=== PATIENT | male | born 1970 | race Caucasian/White ===

== ENCOUNTER 2019-07-20 08:40 | Day surgery (SDC) | payer BC ==
[~2019-07-20] VITALS: Ht 170.2 cm; Wt 78.9 kg
[~2019-07-20 08:40] MED LIST: CEPH500 PO; CITA10S PO; CYCL10 PO; DOXY100 PO; HYDACE5; HYDACE5 PO; NAPR500 PO; Norco 5-325 Ta1 EACH PO; OMEPRAZOLE20 MG; RXOXYACE PO; SERT50 PO
== END 2019-07-20 10:25 | disposition home or self-care (01) ==
LOC: ORSCSDS 08:40
PROVIDERS: Student in an Organized Health Care Education/Training Program
PROC: 0DB58ZX Excision of Esophagus, Via Natural or Artificial Opening Endoscopic, Diagnostic (ICD-10-PCS; principal; 2019-07-20 10:00)
PROC: 0DB68ZX Excision of Stomach, Via Natural or Artificial Opening Endoscopic, Diagnostic (ICD-10-PCS; principal; 2019-07-20 10:00)
PROC: 0DB98ZX Excision of Duodenum, Via Natural or Artificial Opening Endoscopic, Diagnostic (ICD-10-PCS; principal; 2019-07-20 10:00)
DX: R13.10 Dysphagia, unspecified (principal); K44.9 Diaphragmatic hernia without obstruction or gangrene; K21.0 Gastro-esophageal reflux disease with esophagitis; K22.2 Esophageal obstruction; K31.7 Polyp of stomach and duodenum; Z87.891 Personal history of nicotine dependence; Z79.899 Other long term (current) drug therapy
CPT/HCPCS: 88305; 88342; J2704; J7120

== ENCOUNTER 2019-09-09 18:05 | Emergency (ER) | payer BC ==
[~2019-09-09] VITALS: Ht 172.7 cm; Wt 80.7 kg
[2019-09-09 18:36] LABS: BASOPHILS ABSOLUTE AUTO 0.06 K/mm3 (0.00-0.23); BASOPHILS PERCENT AUTO 1 % (0-2); EOSINOPHILS ABSOLUTE AUTO 0.41 K/mm3 (0.00-0.68); EOSINOPHILS PERCENT AUTO 5 % (0-6); Hematocrit 45.3 % (37.0-53.0); Hemoglobin 15.1 g/dL (13.5-17.5); IMMATURE GRAN ABSOLUTE AUTO 0.01 K/mm3 (0.00-0.10); IMMATURE GRAN PERCENT AUTO 0 % (0-1); LYMPHOCYTES ABSOLUTE AUTO 2.33 K/mm3 (0.84-5.20); LYMPHOCYTES PERCENT AUTO 27 % (21-46); MONOCYTES ABSOLUTE AUTO 0.78 K/mm3 (0.16-1.47); MONOCYTES PERCENT AUTO 9 % (4-13); Mean Corpuscular HGB 28.8 pg (26.0-34.0); Mean Corpuscular HGB Conc 33.3 g/dL (31.5-36.5); Mean Corpuscular Volume 86 fL (80-100); Mean Platelet Volume 9.9 fL (9.1-12.4); NEUTROPHILS ABSOLUTE AUTO 4.99 K/mm3 (1.96-9.15); NEUTROPHILS PERCENT AUTO 58 % (41-73); Platelet Count 284 K/mm3 (150-400); RDW Coefficient Variation 12.2 % (11.7-14.2); RDW Standard Deviation 38.6 fL (35.1-46.3); Red Blood Cell Count 5.25 M/mm3 (4.30-5.90); White Blood Cell Count 8.58 K/mm3 (4.00-11.30)
[2019-09-09 18:55] LABS: Alanine Aminotransfer (ALT/SGP 30 U/L (12-78); Albumin, Blood 3.8 g/dL (3.4-5.0); Albumin/Globulin Ratio 0.9 (0.8-1.8); Alk Phos 62 U/L (50-136); Anion Gap 7 mmol/L (6-16); Aspartate Aminotrans (AST/SGOT 20 U/L (12-37); Bilirubin, Total 0.9 mg/dL (0.1-1.0); Blood Urea Nitrogen 13 mg/dL (8-24); Bun/Creatinine Ratio 12.3 (12.0-20.0); CO2, Blood 27 mmol/L (21-32); Calcium, Blood 9.1 mg/dL (8.5-10.1); Chloride, Blood 105 mmol/L (98-108); Creatinine, Blood 1.06 mg/dL (0.60-1.20); Globulin, Blood 4.2 g/dL (2.2-4.0); Glomerular Filtration Rate >60 (60-); Glucose, Blood 110 mg/dL (70-99); Potassium, Blood 3.5 mmol/L (3.5-5.5); Sodium, Blood 139 mmol/L (136-145); Troponin I <0.015 ng/mL (0.000-0.040)
[2019-09-09] MEDS ORDERED: Norco 7.5-3251 EACH PO (19:37)
== END 2019-09-09 20:07 | disposition home or self-care (01) ==
LOC: ER 18:05
PROVIDERS: Physician Assistant
DX: R07.89 Other chest pain (principal); R20.0 Anesthesia of skin; K21.9 Gastro-esophageal reflux disease without esophagitis; Z88.8 Allergy status to other drugs, medicaments and biological substances; Z88.2 Allergy status to sulfonamides; Z88.1 Allergy status to other antibiotic agents; Z91.018 Allergy to other foods; Z79.899 Other long term (current) drug therapy
CPT/HCPCS: 36415; 71046; 80053; 84484; 85025; 93005; 93010; 96374; 96375; 99285-25; J2405; J3010

== ENCOUNTER 2025-02-12 08:57 | Day surgery (SDC) | payer BC ==
[~2025-02-12] VITALS: Ht 170.2 cm; Wt 82.0 kg
[~2025-02-12 08:57] MED LIST changes: +EPINEPhrine HCl 1 MG/ML 1ML Amp ONE; +FentaNYL Citrate 50 MCG/ML 2 ML Injection ONE; +Norco 7.5-3251 EACH PO; +propofoL 0 ML IV ONE
[2025-02-12] MEDS ORDERED: TRAM50 PO (09:24)
[2025-02-12] MEDS ORDERED: CefTRIAXone Sodium 2,000 MG in NS 100 ML IV SCH (09:30)
[2025-02-12] MEDS ORDERED: Lactated Ringer's 1,000 ML IV ONE ×2 (09:38→10:19)
[2025-02-12] MEDS ORDERED: Dexmedetomidine HCL 200 MCG / 2 ML ONE (10:32)
[2025-02-12] MEDS ORDERED: FentaNYL Citrate 50 MCG/ML 2 ML Injection ONE (10:47)
[2025-02-12] MEDS ORDERED: propofoL 20 ML IV ONE ×2 (10:47→11:03)
--- NOTE | 2025-02-12 10:49 | NUR ---
02/12/25 Allen9 Lin Koenig TIMEOUT: 1045 START OF NERVE BLOCK: 1046 NERVE BLOCK COMPLE[address] BY DR MORA: [id number]
[2025-02-12] MEDS ORDERED: Rocuronium Bromide 10 MG/ML 5ML Injection IV ONE (10:51)
[2025-02-12] MEDS ORDERED: Dexamethasone Sod Phos 10 MG/ML 1ML VIAL ONE (10:56)
[2025-02-12] MEDS ORDERED: Ondansetron HCl 2 MG / ML 2ML Vial ONE (10:56)
[2025-02-12] MEDS ORDERED: Phenylephrine HCl 100 MCG/ML-NS 10MLSYR (1MG/10ML) ONE (11:09)
[2025-02-12] MEDS ORDERED: Ketorolac Tromethamine 30mg Vial ONE (11:19)
[2025-02-12] MEDS ORDERED: Sugammadex Sodium 200 MG/2ML SDV (100 MG/ML) ONE (11:55)
--- NOTE | 2025-02-12 12:33 | NUR ---
02/12/25 1233 YAW CARO PT WOKE, ABLE TO DEEP BREATH/COUGH. DECREASED O2 FROM 10 TO 5L VIA FACE TENT. PT QUIET. DENIES PAIN AND NAUSEA. COMFORTABLE AT THIS TIME.
--- NOTE | 2025-02-12 12:54 | NUR ---
02/12/25 1254 YAW CARO PT AT BEDSIDE. PT EATING AND DRINKING WO DIFF. O2 CURRENTLY 93-94% ON RA.
[2025-02-12 12:56] VITALS: BP 113/81
== END 2025-02-12 13:38 | disposition home or self-care (01) ==
LOC: ORSCSDS 08:57
PROVIDERS: Orthopaedic Surgery
PROC: 0LQ24ZZ Repair Left Shoulder Tendon, Percutaneous Endoscopic Approach (ICD-10-PCS; principal; 2025-02-12 10:30)
PROC: 0RNK4ZZ Release Left Shoulder Joint, Percutaneous Endoscopic Approach (ICD-10-PCS; principal; 2025-02-12 10:30)
DX: M75.112 Incomplete rotator cuff tear or rupture of left shoulder, not specified as traumatic (principal); M75.42 Impingement syndrome of left shoulder; G47.33 Obstructive sleep apnea (adult) (pediatric); K21.9 Gastro-esophageal reflux disease without esophagitis; Z79.899 Other long term (current) drug therapy
CPT/HCPCS: C1713; J0171; J0696; J1100; J1885; J2371; J2405; J2704; J3010; J7120

== ENCOUNTER 2025-08-17 07:51 | Day surgery (SDC) | payer BC ==
[~2025-08-17] VITALS: Ht 170.2 cm; Wt 80.0 kg
[~2025-08-17 07:51] MED LIST changes: -EPINEPhrine HCl 1 MG/ML 1ML Amp ONE; -FentaNYL Citrate 50 MCG/ML 2 ML Injection ONE; +TRAM50 PO; -propofoL 0 ML IV ONE
[2025-08-17] MEDS ORDERED: Benzocaine Oral Spray 0.5ML UD ONE (09:10)
[2025-08-17 10:05] VITALS: BP 109/82
== END 2025-08-17 10:22 | disposition home or self-care (01) ==
LOC: ORSCSDS 07:51
PROVIDERS: Internal Medicine Gastroenterology
PROC: 0DB58ZX Excision of Esophagus, Via Natural or Artificial Opening Endoscopic, Diagnostic (ICD-10-PCS; principal; 2025-08-17 09:30)
PROC: 0D757ZZ Dilation of Esophagus, Via Natural or Artificial Opening (ICD-10-PCS; principal; 2025-08-17 09:30)
PROC: 0DJD8ZZ Inspection of Lower Intestinal Tract, Via Natural or Artificial Opening Endoscopic (ICD-10-PCS; principal; 2025-08-17 09:30)
DX: K21.9 Gastro-esophageal reflux disease without esophagitis (principal); Z12.11 Encounter for screening for malignant neoplasm of colon; K20.0 Eosinophilic esophagitis; R13.14 Dysphagia, pharyngoesophageal phase; G47.33 Obstructive sleep apnea (adult) (pediatric); Z79.899 Other long term (current) drug therapy
CPT/HCPCS: 43239; 43450; G0121; 88305; A9270; J2704; J7120